=== PATIENT | male | born 1975 | race Caucasian/White ===

== ENCOUNTER 2017-03-06 17:07 | Emergency (ER) | payer SELFPAY ==
[~2017-03-06] VITALS: Ht 167.6 cm; Wt 81.6 kg
[2017-03-06 17:22] VITALS: BP_SYST 136
[2017-03-06 17:57] LABS: BILIRUBIN,URINE NEGATIVE (NEGATIVE); BLOOD, URINE 2+ (NEGATIVE); CLARITY/URINE CLOUDY (CLEAR); COLOR,URINE YELLOW (YELLOW); GLUCOSE,URINE NEGATIVE (NEGATIVE); KETONES,URINE NEGATIVE (NEGATIVE); LEUKOCYTE ESTERASE ,URINE 2+ (NEGATIVE); NITRITE, URINE NEGATIVE (NEGATIVE); PROTEIN URINE 1+ (NEGATIVE); UROBILINOGEN,URINE 0.2 (0.2-1.0)
[2017-03-06] MEDS ORDERED: LEVOFLOXACIN 750 MG TABLET PO ONE (18:30)
[2017-03-06] MEDS ORDERED: IBUPROFEN 800 MG TABLET PO ONE (19:00)
[2017-03-06 19:09] VITALS: BP_SYST 131
[2017-03-06 19:25] LABS: BACTERIA,URINE FEW /HPF (None Seen); MUCUS,URINE 1+ /LPF (None Seen); WBC,URINE >100 /HPF (0-3)
== END 2017-03-06 19:09 | disposition home or self-care (01) ==
LOC: SED 17:07
DX: N43.3 Hydrocele, unspecified (principal); N45.1 Epididymitis
CPT/HCPCS: 76870-TC; 81000-TC; 87086; 99285

== ENCOUNTER 2019-06-25 00:52 | Emergency (ER) | payer MEDICAID ==
[~2019-06-25] VITALS: Ht 170.2 cm; Wt 81.6 kg
[2019-06-25 00:56] VITALS: BP_SYST 117
[2019-06-25] MEDS ORDERED: ACETAMINOPHEN 500 MG TABLET PO ONE (02:45)
[2019-06-25 03:17] VITALS: BP_SYST 110
== END 2019-06-25 03:17 | disposition home or self-care (01) ==
LOC: SED 00:52
DX: S92.321A Displaced fracture of second metatarsal bone, right foot, initial encounter for closed fracture (principal); W18.42XA Slipping, tripping and stumbling without falling due to stepping into hole or opening, initial encounter; Y93.89 Activity, other specified; Y92.89 Other specified places as the place of occurrence of the external cause; Y99.8 Other external cause status
CPT/HCPCS: 99283

== ENCOUNTER 2024-01-02 00:49 | Emergency (ER) | payer MEDICAID ==
[~2024-01-02] VITALS: Ht 170.2 cm; Wt 86.2 kg
[2024-01-02 01:00] VITALS: BP_SYST 131; PULSE 95; RESP 18; TEMP 97.1; O2SAT 97
[2024-01-02 02:20] LABS: INFLUENZA TYPE A Negative (NEGATIVE); INFLUENZA TYPE B NEGATIVE (NEGATIVE)
[2024-01-02] MEDS ORDERED: ZIT250 PO (02:26)
[2024-01-02] MEDS ORDERED: ALBMDI INH (02:26)
[2024-01-02] MEDS ORDERED: PRED50TA PO (02:26)
== END 2024-01-02 02:35 | disposition home or self-care (01) ==
LOC: SED 00:49
DX: J40 Bronchitis, not specified as acute or chronic (principal); F17.210 Nicotine dependence, cigarettes, uncomplicated; Z71.6 Tobacco abuse counseling; Z20.822 Contact with and (suspected) exposure to COVID-19
CPT/HCPCS: 36415; 99283